=== PATIENT | male | born 1980 | race Caucasian/White ===

== ENCOUNTER 2017-06-08 15:05 | Emergency (ER) | payer OTHER ==
[2017-06-08] MEDS ORDERED: TDAP ADULT 0.5 ML INJ (BOOSTRIX) IM ONE (15:38)
--- NOTE | 2017-06-08 15:58 | EDPHY ---
H & P Stated Complaint: Lac to palm R hand;bleeding controlled Time Seen by Provider: 06/08/17 15:32 HPI/ROS: CHIEF COMPLAINT: Laceration HISTORY OF PRESENT ILLNESS: The patient is a 36-year-old man who comes to the emergency department complaining of laceration to the palm of his right wrist. 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 The patient denies any other injuries. He is not up-to-date on tetanus. REVIEW OF SYSTEMS: Constitutional: denies: chills, fever, recent illness, recent injury EENTM: denies: blurred vision, double vision, nose congestion Respiratory: denies: cough, shortness of breath Cardiac: denies: chest pain, irregular heart rate, lightheadedness, palpitations Gastrointestinal/Abdominal: denies: abdominal pain, diarrhea, nausea, vomiting, blood streaked stools Genitourinary: denies: dysuria, frequency, hematuria, pain Musculoskeletal: denies: joint pain, muscle pain Skin: Laceration Neurological: denies: headache, numbness, paresthesia, tingling, dizziness, weakness Hematologic/Lymphatic: denies: blood clots, easy bleeding, easy bruising Immunologic/allergic: denies: HIV/AIDS, transplant EXAM: GENERAL: Well-appearing, well-nourished and in no acute distress. HEAD: Atraumatic, normocephalic. EYES: Pupils equal round and reactive to light, extraocular movements intact, sclera anicteric, conjunctiva are normal. ENT: TMs normal, nares patent, oropharynx clear without exudates. Moist mucous membranes. NECK: Normal range of motion, supple without lymphadenopathy or JVD. LUNGS: Breath sounds clear to auscultation bilaterally and equal. No wheezes rales or rhonchi. HEART: Regular rate and rhythm without murmurs, rubs or gallops. ABDOMEN: Soft, nontender, normoactive bowel sounds. No guarding, no rebound. No masses appreciated. BACK: No CVA tenderness, no spinal tenderness, step-offs or deformities EXTREMITIES: Normal range of motion, no pitting or edema. No clubbing or cyanosis. NEUROLOGICAL: Cranial nerves II through XII grossly intact. Normal speech, normal gait. 5/5 strength, normal movement in all extremities, normal sensation PSYCH: Normal mood, normal affect. SKIN: 3 cm laceration to right the palm of hand the normal range of motion. Normal sensation. No difficulty with movement or strength. Source: Patient Exam Limitations: No limitations - Personal History Current Tetanus Diphtheria and Acellular Pertussis (TDAP): No - Medical/Surgical History Hx Asthma: No Hx Chronic Respiratory Disease: No Hx Diabetes: No Hx Cardiac Disease: No Hx Renal Disease: No Hx Cirrhosis: No Hx Alcoholism: No Other PMH: neg - Family History Significant Family History: No pertinent family hx - Social History Smoking Status: Former smoker Alcohol Use: Sober Drug Use: None Constitutional: Initial Vital Signs Temperature (C) 36.7 C 06/08/17 15:11 Heart Rate 75 06/08/17 15:11 Respiratory Rate 18 06/08/17 15:11 Blood Pressure 106/63 06/08/17 15:11 O2 Sat (%) 977 H 06/08/17 15:11 O2 Delivery Mode Room Air Allergies/Adverse Reactions: cefaclor [From Ceclor] Allergy (Unknown, Verified 06/08/17 15:11) Home Medications: Medication Instructions Recorded NK [No Known Home Meds] 06/08/17 Medical Decision Making Procedures: Procedure: Laceration repair. Verbal consent was obtained from the patient. The 3 cm hand laceration was anesthetized with 0.5% bupivacaine locally infiltrated. The wound was irrigated copiously according to protocol, draped and explored to its base. It was approximately 1/2 cm deep. There were no deep structures involved. No tendon, nerve, or vascular injury was identified when explored through full range of motion. No foreign body was identified. The wound was repaired with 5.0 Prolene, 8 sutures, continuous. The wound repair was simple without wound margin revisement or multiple flap alignment. The procedure was performed by myself. A dressing was then placed with sterile gauze and bacitracin. ED Course/Re-evaluation: Patient tolerated the procedure well. He is received his tetanus vaccine. He declines further workup or testing. We discussed suture care and removal. Differential Diagnosis: Partial list of the Differential diagnosis considered include but were not limited to; hand laceration and although unlikely based on the history and physical exam, I also considered foreign body, tendon injury, vascular injury, nerve injury. I discussed these differential diagnoses and the plan with the patient as well as the usual and expected course. The patient understands that the diagnosis is provisional and that in medicine we are not always correct and that further workup is often warranted. Usual and customary warnings were given. All of the patient's questions were answered. The patient was instructed to return to the emergency department should the symptoms at all worsen or return, otherwise to followup with the physician as we discussed. - Data Points Medications Given: Discontinued Medications Diphtheria/Tetanus/Acell Pertussis (Boostrix) 0.5 ml IM .ONCE ONE Stop: 06/08/17 15:39 Last Admin: 06/08/17 15:55 Dose: 0.5 ml Departure - Departure Disposition: Home, Routine, Self-Care Clinical Impression: Laceration Condition: Fair Instructions: Care For Your Stitches (ED), Laceration (ED) Additional Instructions: Have your sutures removed in 10 days Referrals: NONE *PRIMARY CARE P,. [Primary Care Provider] - As per Instructions
[2017-06-08 16:47] VITALS: BP 126/80; PULSE 76; RESP 16; TEMP 98.6; O2SAT 97
== END 2017-06-08 16:47 | disposition home or self-care (01) ==
PROC: 0HQFXZZ Repair Right Hand Skin, External Approach (ICD-10-PCS; principal; 2017-06-08)
DX: S61.411A Laceration without foreign body of right hand, initial encounter (principal); Z23 Encounter for immunization; Z87.891 Personal history of nicotine dependence; W45.8XXA Other foreign body or object entering through skin, initial encounter

== ENCOUNTER 2018-10-28 15:18 | Emergency (ER) | payer OTHER ==
--- NOTE | 2018-10-28 15:26 | EDPHY ---
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 He reports that he immediately started to bleed and he applied direct pressure. He reports that the bleeding will not stop. Denies radiation, weakness, decreased range of motion, paresthesias. Reports last tetanus booster given 2 years ago. He denies any pain at this time. Modifying Factors: Direct pressure Comment: ROS: A comprehensive 10 system review of systems is otherwise negative aside from elements mentioned in the history of present illness. MEDICAL/SURGICAL/SOCIAL HISTORY: Medical history: Generally healthy. Does not take any regular medications. Surgical history: Denies Social history: Employed. Has children. Former smoker. CONSTITUTIONAL: Polite and cooperative adult white male, awake and alert, no obvious distress HEENT: Atraumatic and normocephalic, PERRL, EOMI. Nares patent; no rhinorrhea; no nasal mucosal edema. Tympanic membranes clear. Oropharynx clear, no exudate and moist pink mucosa. Airway patent. No lymphadenopathy. No meningismus. Cardiovascular: Normal S1/S2, regular rate, regular rhythm, without murmur rub or gallop. PULMONARY/CHEST: Symmetrical and nontender. Clear to auscultation bilaterally. Good air movement. No accessory muscle usage. ABDOMEN: Soft, nondistended, nontender, no rebound, no guarding, no peritoneal signs, no masses or organomegaly. No CVAT. EXTREMITIES: 2/2 pulses, strength 5/5, left WRIST: Extension to 70, flexion to 80, radial deviation to 20 degree, ulnar deviation to 30, no scaphoid tenderness, no tenderness over ulnar styloid, no tenderness over radial styloid. Volar aspect of left forearm shows 7 cm, simple, deep laceration running vertically with scant amount of active bleeding from superficial capillary injury. no clubbing, no cyanosis or edema. NEUROLOGICAL: no focal neuro deficits. GCS 15. SKIN: Warm and dry, no erythema. Multiple tattoos covering body. no rash. Good capillary refill. Source: Patient Exam Limitations: No limitations - Personal History Current Tetanus Diphtheria and Acellular Pertussis (TDAP): Yes - Medical/Surgical History Hx Asthma: No Hx Chronic Respiratory Disease: No Hx Diabetes: No Hx Cardiac Disease: No Hx Renal Disease: No Hx Cirrhosis: No Hx Alcoholism: No Other PMH: neg - Social History Smoking Status: Former smoker Constitutional: Initial Vital Signs Heart Rate 59 L 10/28/18 15:27 Respiratory Rate 16 10/28/18 15:27 Blood Pressure 116/61 10/28/18 15:27 O2 Sat (%) 100 10/28/18 15:27 O2 Delivery Mode Room Air Allergies/Adverse Reactions: cefaclor [From Ceclor] Allergy (Unknown, Verified 06/08/17 15:11) Home Medications: Medication Instructions Recorded NK [No Known Home Meds] 06/08/17 Medical Decision Making Procedures: Procedure: Laceration repair. Verbal consent was obtained from the patient. The 7 cm, simple, deep, vertical laceration on the volar aspect of the left forearm was anesthetized in the usual fashion using 14 mL of 1% lidocaine with epinephrine. The wound was irrigated, draped and explored to its base with a gloved finger. There were no deep structures involved. No tendon injury was identified. The wound was repaired with #7, 4-0 Prolene simple interrupted pattern. Good hemostasis was achieved and patient tolerated procedure well. Xeroform and clean sterile dressing applied. The procedure was performed by myself. ED Course/Re-evaluation: Tetanus is up-to-date. Local anesthesia provided and copiously irrigated Laceration closed with 7 nonabsorbable sutures Xeroform and cleared sterile dressing applied Verbal and written wound care instructions provided It does not appear patient has nerve or ligament injury at this time. Referral to orthopedic provided as needed No signs of neurovascular compromise/tenting of skin/compartment syndrome/ extremities and joints examined above and below area of concern and are neurovascularly intact. This patient was seen under the supervision of my primary supervising physician. I evaluated care for this patient independently. Differential Diagnosis: Differential diagnosis includes but is not limited to laceration, nerve injury, ligament injury, capillary injury. Departure - Departure Disposition: Home, Routine, Self-Care Clinical Impression: Laceration of left forearm without complication Qualifiers: Encounter type: initial encounter Qualified Code(s): S51.812A - Laceration without foreign body of left forearm, initial encounter Condition: Good Instructions: Laceration (ED), Care For Your Stitches (ED) Additional Instructions: Keep the dressing dry and in place for 48 hours. After 48 hours, you may remove the dressing; wash the site daily with mild soap and water; then pat dry. Do not soak in a bathtub or go swimming until sutures are removed. Take Tylenol 650 mg every 4 hours and/or Ibuprofen 600 mg every 8 hours with food as needed for pain. You experience weakness, decreased range of motion or numbness; follow-up with Orthopedics for further evaluation. Wound Care Follow-Up: Removal of sutures in [ 10-14 ] days. Suture removal is complimentary in uncomplicated cases. Infection or abnormal findings would require reevaluation by the MD. In that case, you may be billed. Referrals: Shahram Bruno MD [Medical Doctor] - As per Instructions
[2018-10-28 15:29] VITALS: BP 116/61
== END 2018-10-28 16:09 | disposition home or self-care (01) ==
PROC: 0HQEXZZ Repair Left Lower Arm Skin, External Approach (ICD-10-PCS; principal; 2018-10-28)
DX: S51.812A Laceration without foreign body of left forearm, initial encounter (principal); W25.XXXA Contact with sharp glass, initial encounter; Y99.0 Civilian activity done for income or pay